=== PATIENT | male | born 1980 | race Caucasian/White ===

== ENCOUNTER 2018-05-28 12:47 | Emergency (ER) | payer SELFPAY, BC, OTHER ==
[2018-05-28] MEDS: NITROGLYCERIN 0.4 MG SUBL TABLET SL (13:30)
[2018-05-28 13:59] LABS: BASO # 0.1 10^3/uL (0.0-0.2); BASO % 0.4 % (0.0-1.0); EOS # 0.1 10^3/uL (0.0-0.50); EOS % 0.5 % (0.0-3.0); HEMATOCRIT 40.3 % (42.0-52.0); HEMOGLOBIN 13.4 g/dl (13.5-17.5); IMMATURE GRANULOCYTE % 0.4 % (0-3.0); LYMPH # 1.9 10^3/uL (1.5-4.5); LYMPH % 17.1 % (24.0-44.0); MEAN CORPUSCULAR HEMOGLOBIN 30.9 pg (27.0-33.0); MEAN CORPUSCULAR HGB CONC 33.3 g/dl (32.0-36.5); MEAN CORPUSCULAR VOLUME 93.1 fl (80.0-96.0); NEUTROPHILS # 8.2 10^3/uL (1.8-7.7); NEUTROPHILS % 72.6 % (36.0-66.0); PLATELET COUNT, AUTOMATED 274 10^3/uL (150-450); RED BLOOD COUNT 4.33 10^6/uL (4.30-6.10); RED CELL DISTRIBUTION WIDTH 12.9 % (11.5-14.5); WHITE BLOOD COUNT 11.3 10^3/uL (4.0-10.0)
[2018-05-28 14:21] LABS: AMPHETAMINES LEVEL URINE NEGATIVE (NEGATIVE); BARBITURATES URINE NEGATIVE (NEGATIVE); BENZODIAZEPINES URINE NEGATIVE (NEGATIVE); CANNABINOIDS URINE NEGATIVE (NEGATIVE); COCAINE METABOLITE URINE NEGATIVE (NEGATIVE); METHADONE URINE NEGATIVE (NEGATIVE); OPIATES URINE NEGATIVE (NEGATIVE); PHENCYCLIDINE URINE NEGATIVE (NEGATIVE)
[2018-05-28] MEDS: FLUORESCEIN OPHTH 1 MG STRIP OD (14:45)
[2018-05-28 14:55] LABS: ALBUMIN 3.8 GM/DL (3.2-5.2); ALBUMIN/GLOBULIN RATIO 1.27 (1.00-1.93); ALKALINE PHOSPHATASE 81 U/L (45-117); ALT/SGPT 29 U/L (12-78); ANION GAP 9 MEQ/L (8-16); AST/SGOT 27 U/L (7-37); BILIRUBIN,DIRECT 0.2 MG/DL (0.0-0.2); BILIRUBIN,TOTAL 0.5 MG/DL (0.2-1.0); BLOOD UREA NITROGEN 8 MG/DL (7-18); C REACTIVE PROTEIN QUANTITATIV < 0.30 MG/DL (0.00-0.30); CALCIUM LEVEL 8.5 MG/DL (8.5-10.1); CARBON DIOXIDE LEVEL 25 MEQ/L (21-32); CHLORIDE LEVEL 107 MEQ/L (98-107); CPK CREATINE PHOSPHOKINASE 607 U/L (39-308); CREATININE FOR GFR 0.64 MG/DL (0.70-1.30); GLOMERULAR FILTRATION RATE > 60.0 (>60); GLUCOSE, FASTING 83 MG/DL (70-100); MB/CK RELATIVE INDEX 0.81 (< OR =4); POTASSIUM SERUM 3.9 MEQ/L (3.5-5.1); SODIUM LEVEL 141 MEQ/L (136-145); THYROID STIMULATING HORMONE 0.836 uIU/ML (0.358-3.740); TOTAL PROTEIN 6.8 GM/DL (6.4-8.2); TROPONIN I < 0.02 NG/ML (< 0.10)
[2018-05-28 15:54] LABS: ETHYL ALCOHOL (ETHANOL) < 0.003 % (0.000-0.010); LIPASE 68 U/L (73-393)
[2018-05-28] MEDS ORDERED: ISOVUE-370 76% 100ML VIAL (Q9967) As Ordered (16:40)
[2018-05-28] MEDS: TETRACAINE 0.5% OPHTH SOLN 4ML OD (16:42)
[2018-05-28 17:11] LABS: CPK CREATINE PHOSPHOKINASE 571 U/L (39-308); TROPONIN I < 0.02 NG/ML (< 0.10)
[2018-05-28 17:14] LABS: INR 0.89; PROTHROMBIN TIME 12.2 SECONDS (12.1-14.4)
[2018-05-28 17:15] LABS: PARTIAL THROMBOPLASTIN TIME 29.6 SECONDS (25.4-37.6)
[2018-05-28 17:17] LABS: D-DIMER QUANT 334.29 ng/ml (<500)
== END 2018-05-28 18:11 | disposition home or self-care (01) ==
LOC: M ED 12:47
DX: R07.89 Other chest pain (principal); H10.9 Unspecified conjunctivitis; F41.9 Anxiety disorder, unspecified; Z88.8 Allergy status to other drugs, medicaments and biological substances; F17.210 Nicotine dependence, cigarettes, uncomplicated
CPT/HCPCS: Q9967